=== PATIENT | female | born 1950 | race Caucasian/White ===

== ENCOUNTER 2017-07-19 06:18 | Day surgery (SDC) | payer MEDICARE ==
[~2017-07-19 06:18] MED LIST: Buffered Lidocaine 0.9% SYRIN* 5 ML/SYR SYRINGE INTRADERM ONE
[2017-07-19] MEDS ORDERED: ceFAZolin 2 GM PREMIX (*) 2 GM/50 ML BAG IVPB ONE (06:30)
[2017-07-19] MEDS ORDERED: Buffered Lidocaine 0.9% SYRIN* 5 ML/SYR SYRINGE ONE (06:30)
[2017-07-19] MEDS ORDERED: Lidocaine 1% INJ* 10 MG/ML 30 ML SDV ONE (07:19)
[2017-07-19] MEDS ORDERED: Midazolam* 1 MG/ML 2 ML VIAL (2 MG) ONE ×2 (07:23→07:50)
[2017-07-19] MEDS ORDERED: fentaNYL* 50 MCG/ML 2 ML VIAL (100 MCG VIAL) ONE (07:23)
[2017-07-19] MEDS ORDERED: Famotidine IV* 10 MG/ML 2 ML (20 mg) ONE (07:52)
[2017-07-19] MEDS ORDERED: Propofol* 10 MG/ML 20 ML BTL IV PUSH ONE (07:52)
[2017-07-19] MEDS ORDERED: Ondansetron INJ* 2 MG/ML VIAL IV PRN (08:06)
[2017-07-19] MEDS ORDERED: Levalbuterol 0.63MG/3ML NEB* UNIT OF USE INH PRN (08:06)
[2017-07-19] MEDS ORDERED: PROCHLORPERAZINE INJ 5 MG/ML 2 ML VIAL IV PRN (08:06)
[2017-07-19] MEDS ORDERED: Naloxone* 0.4 MG/ML 1 ML VIAL IV PRN (08:06)
[2017-07-19] MEDS ORDERED: Acetaminophen TAB* 325 MG PO PRN (08:06)
--- NOTE | 2017-07-19 08:54 | RAD ---
HISTORY: Port placement COMPARISONS: None VIEWS: 1: frontal portable view of the chest at 8:40 AM FINDINGS: LINES AND TUBES: A right-sided chest. As noted from a subclavian approach with the tip overlying the cavoatrial junction. CARDIOMEDIASTINAL SILHOUETTE: The cardiomediastinal silhouette is normal for portable technique. PLEURA: The costophrenic angles are sharp. No pleural abnormalities are noted. There is no appreciable pneumothorax. LUNG PARENCHYMA: The lungs are clear. ABDOMEN: The upper abdomen is clear. There is no subphrenic gas. BONES AND SOFT TISSUES: No bone or soft tissue abnormalities are noted. IMPRESSION: LINES AND TUBES ABOVE. NO ACTIVE CARDIOPULMONARY DISEASE.
[2017-07-19 09:09] VITALS: BP 145/71
--- NOTE | 2017-07-19 14:16 | OP ---
CC: Herman Canchola MD; Ruthy Hooper MD OPERATIVE REPORT: DATE OF OPERATION: 07/19/17 DATE OF : 54 SURGEON: Herman Canchola MD [employer] PACKER: None. ANESTHESIOLOGIST: Dr. Garcia. ANESTHESIA: LMAC anesthesia. PRE-OP DIAGNOSIS: Ovarian carcinoma. POST-OP DIAGNOSIS: Ovarian carcinoma. OPERATIVE PROCEDURE: Placement of right subclavian power port. DESCRIPTION OF PROCEDURE: The patient was supine on the operative table. After adequate intravenous sedation, compression stockings, Brianna Hugger warmer, and intravenous antibiotics, the right neck and chest region were prepped with antiseptic and draped in a sterile fashion. Local infiltrative anest hesia was administered and approximately 3-cm subclavian incision was created. An inferior pocket wa s created. Subclavian venipuncture was carried out. Guidewire passed. The peel-away introducer mimi ured and cut at 24 cm and attached to the port, which was sutured in the pocket with 2-0 Prolene. Th e pocket was closed with 3-0 and 5-0 Vicryl followed by Steri-Strips. The port was accessed. There was good blood return. It was flushed with saline solution and heparinized solution followed by a Te gaderm dressing. She was brought to Recovery in good condition. No complications. No drains. No s pecimens. Sponge and instrument counts correct. Estimated blood loss is 10 mL. [id number]/[facility] #: [id number]
--- NOTE | 2017-07-24 14:39 | RAD ---
INDICATION: chest port placement COMPARISONS: None relevant TECHNIQUE: Fluoroscopy was provided for a vascular access procedure. Total fluoroscopy time is: 23 FINDINGS: Spot images demonstrate a right-sided chest port with the tip overlying the cavoatrial junction. IMPRESSION: FLUOROSCOPY WAS PROVIDED FOR A VASCULAR ACCESS PROCEDURE CPT II Codes: G9500
== END 2017-07-19 09:21 | disposition home or self-care (01) ==
LOC: OR 06:18
PROVIDERS: ATTEND Surgery
DX: C56.2 Malignant neoplasm of left ovary (principal); F17.210 Nicotine dependence, cigarettes, uncomplicated; J44.9 Chronic obstructive pulmonary disease, unspecified; E78.5 Hyperlipidemia, unspecified; I10 Essential (primary) hypertension; E66.9 Obesity, unspecified
CPT/HCPCS: 71045; 76000; C1788; J0690; J1642; J2250; J2704; J3010